=== PATIENT | female | born 1985 | race Caucasian/White ===

== ENCOUNTER 2020-06-07 08:39 | Outpatient (CLI) | payer OTHER, SELFPAY ==
--- NOTE | ~2020-06-07 | CT_ITS ---
EXAMINATION: CT soft tissue neck w con DATE: 06/07/2020 09:19 INDICATION: Neck pain. Ear pain. TECHNIQUE: Computed tomography (CT) of the neck was performed with 75 mL Omnipaque-350 intravenous co ntrast. Automated exposure control and iterative reconstruction technique were employed. The dose-ayala gth product was 321.60 mGy-cm. COMPARISON: None FINDINGS: There is mild scarring at the lung apices. There are no pathologically enlarged lymph nodes . The cervical carotid arteries are normal. 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 There are mucous retention cysts in the maxillary sinuses. The mast oid air cells are normal. There is mild cervical spondylosis. There is dextroscoliosis of cervicothor acic spine. The teeth are unremarkable. IMPRESSION: 1. Mild cervical spondylosis. Reviewed, dictated and finalized at location A. [employer]
== END 2020-06-07 08:40 | disposition home or self-care (01) ==
PROVIDERS: PCP Internal Medicine; Visit Provider Otolaryngology
DX: H92.09 Otalgia, unspecified ear (principal); R51.9 Headache, unspecified; M47.892 Other spondylosis, cervical region
CPT/HCPCS: 70491; Q9967